=== PATIENT | female | born 1980 | race Caucasian/White ===

== ENCOUNTER 2019-06-07 10:37 | Emergency (ER) | payer OTHER ==
[~2019-06-07] VITALS: Ht 165.1 cm; Wt 91.2 kg
[2019-06-07] MEDS ORDERED: AZELASTINE137 MCG/0. NASAL (11:27)
[2019-06-07] MEDS ORDERED: PROAIR HFA8.5 GM INH (11:27)
[2019-06-07 11:30] VITALS: BP 128/79
== END 2019-06-07 11:32 | disposition home or self-care (01) ==
LOC: M.ERS 10:37
DX: J30.2 Other seasonal allergic rhinitis (principal); F41.9 Anxiety disorder, unspecified; Z98.51 Tubal ligation status; Z88.8 Allergy status to other drugs, medicaments and biological substances